=== PATIENT | male | born 1955 | race Caucasian/White ===

== ENCOUNTER → 2016-09-28 14:01 | Outpatient (CLI) | payer MEDICAID ==
[2014-11-05 13:33] VITALS: BMI 21.5
[~2016-09-28 14:01] MED LIST: EZFE 200200 MG PO; LEVAQUIN750 MG PO; MIRAPEX0.125 MG PO; PEPCID20 MG PO
== END | disposition home or self-care (01) ==
LOC: D.US 14:01
DX: R79.89 Other specified abnormal findings of blood chemistry (principal)

== ENCOUNTER → 2017-03-09 07:45 | Outpatient (CLI) | payer MEDICAID ==
[2014-11-05 13:33] VITALS: BMI 21.5
== END | disposition home or self-care (01) ==
LOC: D.CT 07:45
DX: J32.0 Chronic maxillary sinusitis (principal)